=== PATIENT | female | born 1970 | race Caucasian/White ===

== ENCOUNTER 2019-12-12 16:43 | Emergency (ER) | payer BC, SELFPAY ==
[2019-12-12 16:55] VITALS: BP 132/100; PULSE 89; RESP 18; TEMP 36.7; O2SAT 100
--- NOTE | 2019-12-12 17:00 | ED.URI ---
HPI - URI/Sore Throat General Chief Complaint: Upper Respiratory Infection Stated Complaint: fever/sore throat Time Seen by Provider: 12/12/19 17:00 Source: patient Mode of arrival: ambulatory Limitations: no limitations History of Present Illness HPI Narrative: Khurram Staples is a 49 yo female with a PMH of HTN who comes to express care with upper respiratory symptoms including sore throat, ear pain, congestion; has not taken temperature so is unsure fever. Symptoms started on Sunday. She was with niece on Sunday who was diagnosed with strep on Sunday Related Data Home Medications Medication Instructions Recorded Confirmed levothyroxine 1 mcg/kg DAILY 12/12/19 12/12/19 losartan 50 mg PO DAILY 12/12/19 12/12/19 Allergies Allergy/AdvReac Type Severity Reaction Status Date / Time cefuroxime Allergy Unknown Verified 07/17/18 15:14 sulfamethizole Allergy Unknown Verified 07/17/18 15:13 trimethoprim Allergy Unknown Verified 07/17/18 15:13 sulfamethoxazole Allergy Verified 10/31/11 18:07 CEFUROXIME AXETIL Allergy Uncoded 10/31/11 18:07 Review of Systems Review of Systems: Narrative: CONSTITUTIONAL: Denies fever, chills, sweats. EYES: Denies visual changes, redness, discharge. ENT: Denies rhinorrhea, has congestion, sore throat, bilateral otalgia. CARDIOVASCULAR: Denies chest pain, palpitations, edema. RESPIRATORY: Denies dyspnea, wheezing, cough GASTROINTESTINAL: Denies abdominal pain, nausea, vomiting, diarrhea. GENITOURINARY: Denies dysuria, hematuria, abnormal discharge SKIN: Denies rash or itching. MUSCULOSKELETAL: Denies acute back pain, joint pain, or myalgia. NEUROLOGIC: Denies numbness, or focal weakness. PSYCHIATRIC: Denies anxiety or depression. [facility] Family History Family History Other Breast cancer Diabetes mellitus Heart disease Hypertension Social History Social History (Updated 12/12/19 @ 17:14 by Norma Murray CNP) Smoking status: Former smoker Second hand tobacco smoke exposure: No Alcohol intake: never Gender identity (if verbalized by the patient): Female Comments At time of signature, I agree with nursing past medical, surgical, social and family history. There is no relevant family history pertinent to the presenting complaint. Exam Narrative: Exam Narrative: GENERAL: This is a well-nourished, well-developed patient, in mild distress. HEAD: normocephalic, atraumatic. EYES: Sclera clear/white. Vision is grossly intact. EARS: External ears normal, auditory canals clear on the left , reddened on right without drainage, TMs normal without perforation. Hearing grossly intact. NOSE: External nose normal with no obvious nasal discharge, nares with redness, no rhinorrhea. THROAT: Mucous membranes moist, posterior pharynx erythema. NECK: Neck supple, tender with lymphadenopathy, no masses or thyromegaly. CARDIOVASCULAR: Regular rate and rhythm without murmurs, gallops, or rubs. RESPIRATORY: Clear to auscultation. Breath sounds equal bilaterally. No wheezes, rales, or rhonchi. GASTROINTESTINAL: Abdomen soft, non-tender, SKIN: warm, intact with no suspicious lesions or rash, good texture and turgor. NEURO: awake, alert, and oriented to person, place and time. There were no obvious focal neurologic abnormalities. Steady gait EXTREMITIES: Normal range of motion. No edema. BACK: Nontender without deformity or crepitance.. Course Course Emergency Course: Strep negative, flu negative Started on prednisone Mucinex and codeine cough syrup, Claritin Vital Signs Vital signs: Vital Signs Temperature 98.1 F 12/12/19 16:55 Pulse Rate 89 12/12/19 16:55 Respiratory Rate 18 12/12/19 16:55 Blood Pressure 132/100 H 12/12/19 16:55 Pulse Oximetry 100 12/12/19 16:55 Temperature 98.1 F 12/12/19 16:55 Pulse Rate 89 12/12/19 16:55 Respiratory Rate 18 12/12/19 16:55 Blood Pressure 132/100 H 01
--- NOTE | 2019-12-12 17:31 | ED.URI ---
HPI - URI/Sore Throat General Chief Complaint: Upper Respiratory Infection Stated Complaint: fever/sore throat Time Seen by Provider: 12/12/19 17:00 Source: patient Mode of arrival: ambulatory Limitations: no limitations History of Present Illness HPI Narrative: Elsa Staples is a 49-year-old female with a PMH of hypertension, comes to urgent care with complaints of upper respiratory symptoms including sore throat worsening over the last 2 days History of sinus surgery and recurrent sinus problems, infections Related Data Home Medications Medication Instructions Recorded Confirmed levothyroxine 1 mcg/kg DAILY 12/12/19 12/12/19 losartan 50 mg PO DAILY 12/12/19 12/12/19 Allergies Allergy/AdvReac Type Severity Reaction Status Date / Time cefuroxime Allergy Unknown Verified 07/17/18 15:14 sulfamethizole Allergy Unknown Verified 07/17/18 15:13 trimethoprim Allergy Unknown Verified 07/17/18 15:13 sulfamethoxazole Allergy Verified 10/31/11 18:07 CEFUROXIME AXETIL Allergy Uncoded 10/31/11 18:07 Review of Systems Review of Systems: Narrative: CONSTITUTIONAL: Denies fever, chills, sweats. EYES: Denies visual changes, redness, discharge. ENT: Has rhinorrhea, congestion, sore throat, no otalgia. CARDIOVASCULAR: Denies chest pain, palpitations, edema. RESPIRATORY: Denies dyspnea, wheezing, has cough GASTROINTESTINAL: Denies abdominal pain, nausea, vomiting, diarrhea. GENITOURINARY: Denies dysuria, hematuria, abnormal discharge SKIN: Denies rash or itching. MUSCULOSKELETAL: Denies acute back pain, joint pain, or myalgia. NEUROLOGIC: Denies numbness, or focal weakness. PSYCHIATRIC: Denies anxiety or depression. [facility] Family History Family History Other Breast cancer Diabetes mellitus Heart disease Hypertension Social History Social History (Updated 12/12/19 @ 17:14 by Norma Murray CNP) Smoking status: Former smoker Second hand tobacco smoke exposure: No Alcohol intake: never Gender identity (if verbalized by the patient): Female Exam Narrative: Exam Narrative: GENERAL: This is a well-nourished, well-developed patient, in mild distress. HEAD: normocephalic, atraumatic. EYES: Sclera clear/white. Vision is grossly intact. EARS: External ears normal, auditory canals clear and without drainage, TMs red without perforation. Hearing grossly intact. NOSE: External nose normal with nasal discharge, nares with redness, rhinorrhea. THROAT: Mucous membranes moist, posterior pharynx erythema and edema but no exudate. NECK: Neck supple, non-tender without lymphadenopathy, . CARDIOVASCULAR: Regular rate and rhythm without murmurs, gallops, or rubs. RESPIRATORY: Clear to auscultation. Breath sounds equal bilaterally. No wheezes, rales, or rhonchi. Dry cough GASTROINTESTINAL: Abdomen soft, non-tender, SKIN: warm, intact with no suspicious lesions or rash, good texture and turgor. NEURO: awake, alert, and oriented to person, place and time. There were no obvious focal neurologic abnormalities. Steady gait EXTREMITIES: Normal range of motion. No edema. . BACK: Nontender without deformity . Course Course Emergency Course: No flu or strep testing Patient's blood pressure is elevated because here in clinic-on blood pressure medication Patient concerned about increasing congestion in the nose with prior sinus infections and surgery Vital Signs Vital signs: Vital Signs Temperature 98.1 F 12/12/19 16:55 Pulse Rate 89 12/12/19 16:55 Respiratory Rate 18 12/12/19 16:55 Blood Pressure 132/100 H 12/12/19 16:55 Pulse Oximetry 100 12/12/19 16:55 Temperature 98.1 F 12/12/19 16:55 Pulse Rate 89 12/12/19 16:55 Respiratory Rate 18 12/12/19 16:55 Blood Pressure 132/100 H 12/12/19 16:55 Pulse Oximetry 100 12/12/19 16:55 MDM - URI/Sore Throat Differential Diagnosis Differential diagnosis: Likely upper respiratory infec
== END 2019-12-12 17:32 | disposition home or self-care (01) ==
PROVIDERS: Emergency Provider Nurse Practitioner; PCP Family Medicine
DX: J02.9 Acute pharyngitis, unspecified (principal); H66.001 Acute suppurative otitis media without spontaneous rupture of ear drum, right ear; Z87.891 Personal history of nicotine dependence; I10 Essential (primary) hypertension; E78.00 Pure hypercholesterolemia, unspecified; E03.9 Hypothyroidism, unspecified
CPT/HCPCS: 87081; 87804; 87880; 99213; G0463

== ENCOUNTER 2022-05-16 18:04 | Emergency (ER) | payer BC, SELFPAY ==
[2022-05-16 18:12] VITALS: BP 130/92; PULSE 84; RESP 18; TEMP 36.7; O2SAT 100
--- NOTE | 2022-05-16 18:40 | ED.GENADULT ---
HPI - General Adult General Chief complaint: Upper Respiratory Infection Stated complaint: Body Aches,Fatigue,Rt Ear Irritation Source: patient Mode of arrival: ambulatory Limitations: no limitations History of Present Illness HPI narrative: Patient presents for evaluation of sick symptoms. Symptoms include sinus congestion, headache, sore throat, body aches and chills. No fever, cough, shortness of breath, nausea, vomiting, diarrhea. 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 She has had COVID twice in the past. She has received COVID vaccination. She took a rapid COVID test at home which was negative. She has tried flonase, allergy medication and ibuprofen for her symptoms. Ibuprofen seems to help. She does smoke a few cigarettes per day. No additional complaints or concerns. Related Data Home Medications Medication Instructions Recorded Confirmed fluticasone propionate 50 1 spray intranasal DAILY 02/08/22 05/16/22 mcg/actuation nasal spray,suspension (Flonase Allergy Relief) cetirizine 10 mg tablet (Zyrtec) 10 mg PO DAILY 05/16/22 05/16/22 levonorgestrel 20 mcg/24 hours (7 1 device intrauterine ONCE 05/16/22 05/16/22 yrs) 52 mg intrauterine device (Mirena) Allergies Allergy/AdvReac Type Severity Reaction Status Date / Time cefuroxime Allergy Unknown Unknown Verified 05/16/22 18:26 sulfamethizole Allergy Unknown Swelling Verified 05/16/22 18:26 trimethoprim Allergy Unknown Unknown Verified 05/16/22 18:26 sulfamethoxazole Allergy Unknown Verified 05/16/22 18:26 CEFUROXIME AXETIL Allergy Mild Hives Uncoded 05/16/22 18:26 Review of Systems Review of Systems: CONSTITUTIONAL: Reports chills. Denies fever, or sweats. EYES: Denies visual changes, redness, or discharge. ENT: Reports sinus congestion and sore throat CARDIOVASCULAR: Denies chest pain, palpitations, or edema. RESPIRATORY: Denies cough or dyspnea. GASTROINTESTINAL: Denies abdominal pain, nausea, vomiting, or diarrhea. GENITOURINARY: Denies dysuria or hematuria. SKIN: Denies rash or itching. MUSCULOSKELETAL:Reports body aches NEUROLOGIC: Denies headache, numbness, dizziness, or weakness. PSYCHIATRIC: Denies anxiety or depression. [facility] Past Medical History Medical History Depression Diabetes mellitus HTN (hypertension) Hyperlipidemia Hypothyroid Pharyngitis Surgical History Surgical History H/O exploratory laparotomy H/O sinus surgery History of hip surgery Family History Family History Other Breast cancer Diabetes mellitus Heart disease Hypertension Social History Social History Smoking packs per day: 0.5 Smoking cigarettes per day: 10.0 Years smoked: 10 Smoking pack-years: 5.00 Tobacco type: cigarettes Second hand tobacco smoke exposure: Yes Alcohol intake: current Alcohol use details: rare Substance use: never Substance use type: does not use Gender identity (if verbalized by the patient): Female Exam Narrative: GENERAL: Well-appearing, well-nourished, and in no acute distress. HEAD: Normocephalic, atraumatic. EYES: PERRLA and EOMI. ENT: Nares clear, no rhinorrhea or epistaxis. Mucous membranes moist. Oropharynx without tonsillar hypertrophy exudate or other lesions. Bilateral TMs pearly mortensen nonbulging NECK: Supple. No adenopathy or masses. No carotid bruits or JVD CHEST: Clear to auscultation. No respiratory distress. No wheezes rales or rhonchi HEART: Regular rate and rhythm. No murmur heard. Normal peripheral pulses. ABDOMEN: Soft, nontender, nondistended, normal active bowel sounds. EXTREMITIES: Normal range of motion. No edema. SKIN: Warm, dry, no rash. NEURO: No focal deficits. Alert and oriented x3. PSYCH
[2022-05-16 20:36] LABS: SARS-CoV-2 RNA PCR Negative
== END 2022-05-16 18:54 | disposition home or self-care (01) ==
PROVIDERS: Emergency Provider Nurse Practitioner; PCP Family Medicine
DX: B34.9 Viral infection, unspecified (principal); Z20.822 Contact with and (suspected) exposure to COVID-19; F17.210 Nicotine dependence, cigarettes, uncomplicated; E11.9 Type 2 diabetes mellitus without complications; I10 Essential (primary) hypertension; E78.5 Hyperlipidemia, unspecified; E03.9 Hypothyroidism, unspecified
CPT/HCPCS: 87081; 87804; 87880; 99213; C9803; G0463; U0003; U0005

== ENCOUNTER 2022-07-02 11:48 | Emergency (ER) | payer BC, SELFPAY ==
--- NOTE | ~2022-07-02 | XR_ITS ---
EXAMINATION: XR ankle RT min 3V DATE: 07/02/2022 12:22 INDICATION: Right ankle injury and pain and swelling. TECHNIQUE: 4 views of right ankle were obtained. COMPARISON: None. FINDINGS: Bone alignment is normal. There is a nondisplaced avulsion fracture of distal tip of fibula . Joint spaces are normal. There is an enthesophyte at plantar aspect of calcaneal tuberosity. Ankle soft tissue swelling is noted. IMPRESSION: 1. Nondisplaced avulsion fracture of distal tip of fibula. Reviewed, dictated and finalized at location A.
[2022-07-02 12:02] VITALS: BP 140/91; PULSE 85; RESP 18; TEMP 36.7; O2SAT 100
--- NOTE | 2022-07-02 12:16 | ED.LOWEXIN ---
HPI - Extremity Injury (Lower) General Chief Complaint: Extremity Injury, Lower Stated Complaint: ankle injury Time Seen by Provider: 07/02/22 12:10 Source: patient Mode of arrival: ambulatory Limitations: no limitations History of Present Illness HPI Narrative: 51-year-old female presented for complaint of right lateral ankle pain and swelling after injury yesterday. She states she stepped off of a bucket, onto uneven ground ivan, and inverted the right foot, stating she heard a pop and felt a snap. She has taken ibuprofen, rested, iced and elevated the right leg. She states this morning the pain was quite severe. She denies numbness, tingling, weakness of the foot or toes. Related Data Home Medications Medication Instructions Recorded Confirmed fluticasone propionate 50 1 spray intranasal DAILY 02/08/22 05/16/22 mcg/actuation nasal spray,suspension (Flonase Allergy Relief) cetirizine 10 mg tablet (Zyrtec) 10 mg PO DAILY 05/16/22 05/16/22 levonorgestrel 20 mcg/24 hours (7 1 device intrauterine ONCE 05/16/22 05/16/22 yrs) 52 mg intrauterine device (Mirena) Allergies Allergy/AdvReac Type Severity Reaction Status Date / Time cefuroxime Allergy Unknown Unknown Verified 07/02/22 12:17 sulfamethizole Allergy Unknown Swelling Verified 07/02/22 12:17 trimethoprim Allergy Unknown Unknown Verified 07/02/22 12:17 sulfamethoxazole Allergy Unknown Verified 07/02/22 12:17 CEFUROXIME AXETIL Allergy Mild Hives Uncoded 07/02/22 12:17 Review of Systems Review of Systems: CONSTITUTIONAL: Denies body aches, fever, chills CARDIOVASCULAR: Denies chest pain, palpitations, or edema. RESPIRATORY: Denies cough or dyspnea. SKIN: Denies rash, itching, or wounds. MUSCULOSKELETAL: Reports right ankle pain NEUROLOGIC: Denies headache, numbness, tingling, or weakness. All systems reviewed & are unremarkable except as noted in HPI and below PMFSH Past Medical History Medical History Depression Diabetes mellitus HTN (hypertension) Hyperlipidemia Hypothyroid Pharyngitis Surgical History Surgical History H/O exploratory laparotomy H/O sinus surgery History of hip surgery Family History Family History Other Breast cancer Diabetes mellitus Heart disease Hypertension Social History Social History Smoking packs per day: 0.5 Smoking cigarettes per day: 10.0 Years smoked: 10 Smoking pack-years: 5.00 Tobacco type: cigarettes Second hand tobacco smoke exposure: Yes Alcohol intake: current Alcohol use details: rare Substance use: never Substance use type: does not use Gender identity (if verbalized by the patient): Female Comments At time of signature, I have reviewed and agree with nursing past medical, surgical, social and family history unless otherwise noted. Please see nursing chart for further information. There is no relevant family history pertinent to the presenting complaint Exam Narrative: GENERAL: Well-appearing CHEST: Speaks in full sentences. No respiratory distress. HEART: Regular rate and rhythm. Normal and equal peripheral pulses. EXTREMITIES: Right lateral ankle with moderate swelling and ecchymosis surrounding malleolus; TTP laterally; foot has normal strength and sensation, limited range of motion at ankle due to pain with movement. No open wounds, pulse palpable and equal bilaterally, skin warm, dry, pink. Capillary refill less than 3 seconds. SKIN: Warm, dry, no rash. NEURO: Alert and oriented x3. Course Course Emergency Course: Patient is aware of diagnosis, understands and agrees to treatment plan. Anticipatory guidance given. Patient agrees to follow-up as directed and is aware of reasons to seek care at the emergency department
== END 2022-07-02 12:50 | disposition home or self-care (01) ==
PROVIDERS: Emergency Provider Nurse Practitioner Family; PCP Family Medicine
DX: S82.831A Other fracture of upper and lower end of right fibula, initial encounter for closed fracture (principal); X50.9XXA Other and unspecified overexertion or strenuous movements or postures, initial encounter; E11.9 Type 2 diabetes mellitus without complications; I10 Essential (primary) hypertension; E78.5 Hyperlipidemia, unspecified; E03.9 Hypothyroidism, unspecified; F17.210 Nicotine dependence, cigarettes, uncomplicated; F32.A Depression, unspecified
CPT/HCPCS: 73610; 99214; G0463

== ENCOUNTER 2022-10-31 08:04 | Outpatient (RCR) | payer BC, SELFPAY ==
[2022-10-31 08:18] VITALS: BMI 25.5
[2022-10-31 09:02] VITALS: BMI 25.5
== END 2023-01-16 08:56 | disposition home or self-care (01) ==
LOC: ANHDMC 08:04
PROVIDERS: PCP Family Medicine; Visit Provider Physician Assistant
DX: E11.65 Type 2 diabetes mellitus with hyperglycemia (principal); Z71.3 Dietary counseling and surveillance
CPT/HCPCS: 97802

== ENCOUNTER 2023-11-23 00:16 | Day surgery (SDC) | payer BC, SELFPAY ==
[2023-10-29 14:53] VITALS: BMI 21.9
--- NOTE | 2023-11-21 11:18 | SUR.PREOP ---
Patient called regarding upcoming procedure. Reviewed preop instructions, appointment times, and procedure prep.
[2023-11-23 07:55] VITALS: BP 126/79; PULSE 107; RESP 16; TEMP 36.2; O2SAT 100
[2023-11-23] MEDS: LACTATED RINGERS 1,000 ML 150 ML IV CONT (08:04)
[2023-11-23 08:07] LABS: Glucose Point of Care 142 mg/dl (65-105)
--- NOTE | 2023-11-23 08:57 | PM.HPGS ---
History of Present Illness History of Present Illness Consent: Risks, benefits, and alternatives have been discussed and questions answered. Patient agrees to proceed with procedure. Chief complaint: Other Fecal Abnormalities Narrative: Khurram Staples is a 53 year old female here for first colonoscopy, had + cologuard Review of Systems Constitutional: Constitutional: Denies headache(s) and Denies weakness Eyes: Eyes: Denies blurry vision ENT: Reports Normal hearing present, Denies headache(s) and Denies neck pain Cardiovascular: Cardiovascular: Denies chest pain and Denies dyspnea Respiratory: Respiratory: Denies dyspnea Gastrointestinal: Gastrointestinal: Reports no additional gastrointestinal complaints Genitourinary: Genitourinary: Denies dysuria Musculoskeletal: Musculoskeletal: Denies neck pain Integumentary/Breasts: Skin/Breast: Denies dry skin Neurologic: Reports Normal hearing present, Denies headache(s) and Denies weakness Psychiatric: Psychiatric: Denies anxiety Endocrine: Endocrine: Denies change in body appearance Hematologic/Lymphatic: Hematologic/Lymphatic: Denies easy bleeding Allergic/Immunologic: Allergic/Immunologic: Denies urticaria PMFSH Past Medical History Medical History (Updated 11/23/23 @ 08:58 by Ace Ordoñez MD) Depression Diabetes mellitus HTN (hypertension) Hyperlipidemia Hypothyroid Pharyngitis Positive colorectal cancer screening using Cologuard test Surgical History Surgical History H/O exploratory laparotomy H/O sinus surgery History of hip surgery Family History Family History Other Breast cancer Diabetes mellitus Heart disease Hypertension Social History Social History (Updated 06/29/23 @ 08:41 by Rianna Espino MA) Years smoked: 15 Smoking status: Current every day smoker Tobacco type: cigarettes Second hand tobacco smoke exposure: Yes Alcohol intake: current Alcohol use details: rare Substance use: current Substance use type: marijuana Other substance usage details: Occasional Gummies Lack of Transportation: No Lack of Food: Never True Current Housing: I Have Housing Concerned About Future Housing: No Difficulty Paying Gas/Electric Bills: No Difficulty Paying for Meds: No Currently Unemployed: No Education: Bachelor's Degree Difficulty w/ Childcare or Family Care: No Living arrangements: with family Occupation/Education: occupation Gender identity (if verbalized by the patient): Female Spiritual care concerns: No Agree to blood products: Yes Meds Home Medications and Allergies Home Medications Medication Instructions Recorded Confirmed Type fluticasone propionate 50 1 spray intranasal DAILY 02/08/22 11/23/23 History mcg/actuation nasal spray,suspension (Flonase Allergy Relief) cetirizine 10 mg tablet (Zyrtec) 10 mg PO DAILY 05/16/22 11/23/23 History levonorgestrel 21 mcg/24 hours (8 1 device intrauterine ONCE 05/16/22 11/23/23 History yrs) 52 mg intrauterine device (Mirena) blood-glucose meter (Accu-Chek #1 ea 10/09/22 11/23/23 Rx Guide Glucose Meter) lancets (Accu-Chek Softclix #100 ea 10/09/22 11/23/23 Rx Lancets) levothyroxine 50 mcg tablet See Rx Instructions .Route 08/04/23 11/23/23 Rx .COMPLEX #90 tabs losartan 50 mg tablet 50 mg PO DAILY #90 tabs 08/15/23 11/23/23 Rx blood sugar diagnostic (Accu-Chek #100 ea 10/02/23 11/23/23 Rx Guide test strips) semaglutide 0.25 mg or 0.5 mg (2 See Rx Instructions .Route 10/18/23 11/23/23 Rx mg/3 mL) subcutaneous pen injector .COMPLEX #3 mL (Ozempic) bupropion HCl 300 mg 24 hr tablet, 300 mg PO QAM #90 tabs 10/21/23 11/23/23 Rx extended release (Wellbutrin XL) atorvastatin 10 mg tablet See Rx Instructions .Route 11/07/23 11/23/23 Rx .COMPLEX #90 tabs
--- NOTE | 2023-11-23 09:25 | SUR.OPER ---
constantin submucosal injectable lot [id number], exp 04/12/25, 7 cc
--- NOTE | 2023-11-23 09:27 | SUR.OPER ---
endoscopic marker lot [id number], expiration 12/14/24
--- NOTE | 2023-11-23 09:48 | SUR.OPER ---
four resolution clips, 235 cm 2.8 mm ref [id number], lot [id number], expiration 07/05/2026 (all four clips)
[2023-11-23 09:57] VITALS: BP 122/70; PULSE 98; RESP 24; O2SAT 99
[2023-11-23 10:07] VITALS: BP 122/79; PULSE 76; RESP 21; O2SAT 100
[2023-11-23 10:17] VITALS: BP 132/90; PULSE 75; RESP 15; O2SAT 100
== END 2023-11-23 10:28 | disposition home or self-care (01) ==
PROVIDERS: PCP Family Medicine; Visit Provider Internal Medicine Gastroenterology
PROC: 0DJD8ZZ Inspection of Lower Intestinal Tract, Via Natural or Artificial Opening Endoscopic (ICD-10-PCS; CPT 45378; principal; 2023-11-23 09:00)
DX: D12.4 Benign neoplasm of descending colon (principal); D12.5 Benign neoplasm of sigmoid colon; K57.30 Diverticulosis of large intestine without perforation or abscess without bleeding; K64.8 Other hemorrhoids; I10 Essential (primary) hypertension; E78.5 Hyperlipidemia, unspecified; E03.9 Hypothyroidism, unspecified; E11.9 Type 2 diabetes mellitus without complications; F32.A Depression, unspecified; F17.210 Nicotine dependence, cigarettes, uncomplicated; Z79.85 Long-term (current) use of injectable non-insulin antidiabetic drugs
CPT/HCPCS: 45385; 45381; 82948; 88305; J2704; J7120

== ENCOUNTER 2024-05-31 12:08 | Emergency (ER) | payer BC, SELFPAY ==
--- NOTE | 2024-05-31 12:13 | ED.SKABFB ---
HPI - Skin/Abscess/Foreign Bdy General Chief complaint: Wound/Laceration Stated complaint: finger laceration Time Seen by Provider: 05/31/24 12:13 Source: patient Mode of arrival: ambulatory Limitations: no limitations History of Present Illness HPI narrative: Elsa is a 53-year-old female patient presenting to the clinic today with complaints of a finger laceration to the right 4th distal finger. She reports she was cleaning an of an oven at-home prior to arrival and cut the finger on a screw. Tetanus is unknown. Related Data Home Medications Medication Instructions Recorded Confirmed fluticasone propionate 50 1 spray intranasal DAILY 02/08/22 05/31/24 mcg/actuation nasal spray,suspension (Flonase Allergy Relief) cetirizine 10 mg tablet (Zyrtec) 10 mg PO DAILY 05/16/22 05/31/24 levonorgestrel 21 mcg/24 hr (up to 1 device intrauterine ONCE 05/16/22 05/31/24 8 years) 52 mg intrauterine device (Mirena) Allergies Allergy/AdvReac Type Severity Reaction Status Date / Time cefuroxime Allergy Unknown Hives Verified 05/31/24 12:34 sulfamethizole Allergy Unknown Swelling Verified 05/31/24 12:34 trimethoprim Allergy Unknown Unknown Verified 05/31/24 12:34 nut - unspecified Allergy Other Verified 05/31/24 12:34 sulfamethoxazole Allergy Unknown Verified 05/31/24 12:34 Review of Systems Review of Systems: Pertinent positives per HPI. Patient denies any fever, chills, rash, headache, visual changes, dizziness, cough, runny nose, sore throat, shortness of breath, chest pain, palpitations, nausea, vomiting, diarrhea, constipation, abdominal pain, or any urinary issues. [facility] Past Medical History Medical History Depression Diabetes mellitus HTN (hypertension) Hyperlipidemia Hypothyroid Pharyngitis Positive colorectal cancer screening using Cologuard test Surgical History Surgical History H/O exploratory laparotomy H/O sinus surgery History of hip surgery Family History Family History Other Breast cancer Diabetes mellitus Heart disease Hypertension Social History Social History Smoking packs per day: 0.15 Smoking cigarettes per day: 3.0 Years smoked: 15 Smoking pack-years: 2.25 Smoking status: Current every day smoker Tobacco type: cigarettes (cut back a lot ) Second hand tobacco smoke exposure: Yes Alcohol intake: current Alcohol use details: rare Substance use: current Substance use type: marijuana Other substance usage details: Occasional Gummies Lack of Transportation: No Lack of Food: Never True Current Housing: I Have Housing Concerned About Future Housing: No Difficulty Paying Gas/Electric Bills: No Difficulty Paying for Meds: No Currently Unemployed: No Education: Bachelor's Degree Difficulty w/ Childcare or Family Care: No Living arrangements: with family Occupation/Education: occupation Gender identity (if verbalized by the patient): Female Spiritual care concerns: No Agree to blood products: Yes Comments At the time of my signature, I reviewed and agree with the nursing past medical, surgical, social, and family history. There is no relevant family history pertinent to the patient complaint. Exam Narrative: General: Well-developed, well nourished, in no apparent distress Head: Normocephalic, atraumatic. Cardio: Regular rate and rhythm, s1 and s2 normal, no murmur appreciated. Resp: Clear to auscultation bilaterally, no rhonchi, rales, wheezing or rubs. Integumentary: [place], warm, and dry, 1 x 1 cm flap laceration to the distal 4th right finger. Bleeding is controlled Course Course Emergency Course: Portions of this record may have been created with voice recognition [employer]
[2024-05-31 12:24] VITALS: BP 139/81; PULSE 78; RESP 18; TEMP 36.8; O2SAT 99
[2024-05-31] MEDS: TETANUS,DIPHTHERIA,AC PERTUSSIS ADULT (0.5 ML) BOOSTRIX IM (12:36)
[2024-05-31] MEDS: LIDOCAINE HCL 1% LOCAL INJ 2 ML AMPUL 4 ML INFILTRATE (13:00)
== END 2024-05-31 13:08 | disposition home or self-care (01) ==
PROVIDERS: Emergency Provider Nurse Practitioner Family; PCP Family Medicine
DX: S61.214A Laceration without foreign body of right ring finger without damage to nail, initial encounter (principal); W45.8XXA Other foreign body or object entering through skin, initial encounter; Z23 Encounter for immunization; F17.210 Nicotine dependence, cigarettes, uncomplicated; F12.90 Cannabis use, unspecified, uncomplicated; E11.9 Type 2 diabetes mellitus without complications; I10 Essential (primary) hypertension; E78.5 Hyperlipidemia, unspecified; E03.9 Hypothyroidism, unspecified
CPT/HCPCS: 12001; 90471; 90715; 99212; G0463

== ENCOUNTER 2024-06-20 00:44 | Day surgery (SDC) | payer BC, SELFPAY ==
[2024-06-02 12:52] VITALS: BMI 21.5
[2024-06-20 08:10] VITALS: BP 121/81; PULSE 91; RESP 16; TEMP 36.2; O2SAT 99
[2024-06-20] MEDS: LACTATED RINGERS 1,000 ML 150 ML IV CONT (08:19)
[2024-06-20 08:21] LABS: Glucose Point of Care 102 mg/dl (65-105)
--- NOTE | 2024-06-20 08:31 | WPDANESEPPF ---
Anes - Initial Pre Proc Eval Procedure: Operation Date: 06/20/24 09:30 Proposed Procedures p Colonoscopy - Ace Ordoñez MD Date/Time: 06/20/24 08:31 Surgeon: Ace Ordoñez MD Pre Op Diagnosis: Personal hx. of colon polyps Patient Data Age: 53 Gender: F Height: 1.63 m Weight: 55.5 kg Last Vital Signs Temp 97.2 F L 06/20/24 08:10 Pulse 91 06/20/24 08:10 Resp 16 06/20/24 08:10 BP 121/81 06/20/24 08:10 Pulse Ox 99 06/20/24 08:10 O2 Del Method Room Air 06/20/24 08:10 Allergies Allergy/AdvReac Type Severity Reaction Status Date / Time cefuroxime Allergy Unknown Hives Verified 06/20/24 08:08 sulfamethizole Allergy Unknown Swelling Verified 06/20/24 08:08 trimethoprim Allergy Unknown Unknown Verified 06/20/24 08:08 nut - unspecified Allergy Other Verified 06/20/24 08:08 sulfamethoxazole Allergy Unknown Verified 06/20/24 08:08 Home Medications Medication Instructions Recorded Confirmed Type fluticasone propionate 50 1 spray intranasal DAILY 02/08/22 06/02/24 History mcg/actuation nasal spray,suspension (Flonase Allergy Relief) cetirizine 10 mg tablet (Zyrtec) 10 mg PO DAILY 05/16/22 06/02/24 History levonorgestrel 21 mcg/24 hr (up to 1 device intrauterine ONCE 05/16/22 06/02/24 History 8 years) 52 mg intrauterine device (Mirena) blood-glucose meter (Accu-Chek #1 ea 10/09/22 01/25/24 Rx Guide Glucose Meter) lancets (Accu-Chek Softclix #100 ea 10/09/22 01/25/24 Rx Lancets) blood sugar diagnostic (Accu-Chek #100 ea 10/02/23 01/25/24 Rx Guide test strips) bupropion HCl 300 mg 24 hr tablet, 300 mg PO QAM #90 tabs 01/31/24 06/02/24 Rx extended release (Wellbutrin XL) losartan 50 mg tablet 50 mg PO DAILY #90 tabs 01/31/24 06/02/24 Rx atorvastatin 10 mg tablet See Rx Instructions .Route 05/06/24 06/02/24 Rx .COMPLEX #90 tabs levothyroxine 50 mcg tablet See Rx Instructions .Route 05/06/24 06/02/24 Rx .COMPLEX #90 tabs semaglutide 0.25 mg or 0.5 mg (2 See Rx Instructions .Route 06/02/24 06/20/24 Rx mg/3 mL) subcutaneous pen injector .COMPLEX #3 mL (Ozempic) Laboratory Tests 06/20/24 08:17 POC Capillary Glucose 102 mg/dl (65-105) Patient hx anesthesia problems: none Family hx anesthesia problems: none Results Review: All pre-operative results and documents have been reviewed as part of the pre-operative evaluation. [facility] Past Medical History Medical History Depression Diabetes mellitus HTN (hypertension) Hyperlipidemia Hypothyroid Pharyngitis Positive colorectal cancer screening using Cologuard test Surgical History Surgical History H/O exploratory laparotomy H/O sinus surgery History of hip surgery Family History Family History Other Breast cancer Diabetes mellitus Heart disease Hypertension Social History Social History Smoking packs per day: 0.15 Smoking cigarettes per day: 3.0 Years smoked: 15 Smoking pack-years: 2.25 Smoking status: Current every day smoker Tobacco type: cigarettes Second hand tobacco smoke exposure: Yes Alcohol intake: current Drinks per week: 4 Alcohol use details: rare Substance use: current Substance use type: does not use Other substance usage details: Occasional Gummies Lack of Transportation: No Lack of Food: Never True Current Housing: I Have Housing Concerned About Future Housing: No Difficulty Paying Gas/Electric Bills: No Difficulty Paying for Meds: No Currently Unemployed: No Education: Bachelor's Degree Difficulty w/ Childcare or Family Care: No Living arrangements: with family Occupation/Education: occupation Gender identity (if verbalized by the patient)
--- NOTE | 2024-06-20 08:40 | PM.HPGS ---
History of Present Illness History of Present Illness Consent: Risks, benefits, and alternatives have been discussed and questions answered. Patient agrees to proceed with procedure. Chief complaint: Personal hx. of colon polyps Narrative: Khurram Staples is a 53 year old female with large polyp removed about 6 months ago Review of Systems Review of Systems: All systems reviewed & are unremarkable except as noted in HPI and below PMFSH Past Medical History Medical History (Updated 06/20/24 @ 08:41 by Ace Ordoñez MD) Adenomatous colon polyp Depression Diabetes mellitus HTN (hypertension) Hyperlipidemia Hypothyroid Pharyngitis Positive colorectal cancer screening using Cologuard test Surgical History Surgical History H/O exploratory laparotomy H/O sinus surgery History of hip surgery Family History Family History Other Breast cancer Diabetes mellitus Heart disease Hypertension Social History Social History Smoking packs per day: 0.15 Smoking cigarettes per day: 3.0 Years smoked: 15 Smoking pack-years: 2.25 Smoking status: Current every day smoker Tobacco type: cigarettes Second hand tobacco smoke exposure: Yes Alcohol intake: current Drinks per week: 4 Alcohol use details: rare Substance use: current Substance use type: does not use Other substance usage details: Occasional Gummies Lack of Transportation: No Lack of Food: Never True Current Housing: I Have Housing Concerned About Future Housing: No Difficulty Paying Gas/Electric Bills: No Difficulty Paying for Meds: No Currently Unemployed: No Education: Bachelor's Degree Difficulty w/ Childcare or Family Care: No Living arrangements: with family Occupation/Education: occupation Gender identity (if verbalized by the patient): Female Spiritual care concerns: No Agree to blood products: Yes Meds Home Medications and Allergies Home Medications Medication Instructions Recorded Confirmed Type fluticasone propionate 50 1 spray intranasal DAILY 02/08/22 06/02/24 History mcg/actuation nasal spray,suspension (Flonase Allergy Relief) cetirizine 10 mg tablet (Zyrtec) 10 mg PO DAILY 05/16/22 06/02/24 History levonorgestrel 21 mcg/24 hr (up to 1 device intrauterine ONCE 05/16/22 06/02/24 History 8 years) 52 mg intrauterine device (Mirena) blood-glucose meter (Accu-Chek #1 ea 10/09/22 01/25/24 Rx Guide Glucose Meter) lancets (Accu-Chek Softclix #100 ea 10/09/22 01/25/24 Rx Lancets) blood sugar diagnostic (Accu-Chek #100 ea 10/02/23 01/25/24 Rx Guide test strips) bupropion HCl 300 mg 24 hr tablet, 300 mg PO QAM #90 tabs 01/31/24 06/02/24 Rx extended release (Wellbutrin XL) losartan 50 mg tablet 50 mg PO DAILY #90 tabs 01/31/24 06/02/24 Rx atorvastatin 10 mg tablet See Rx Instructions .Route 05/06/24 06/02/24 Rx .COMPLEX #90 tabs levothyroxine 50 mcg tablet See Rx Instructions .Route 05/06/24 06/02/24 Rx .COMPLEX #90 tabs semaglutide 0.25 mg or 0.5 mg (2 See Rx Instructions .Route 06/02/24 06/20/24 Rx mg/3 mL) subcutaneous pen injector .COMPLEX #3 mL (Ozempic) Allergies Allergy/AdvReac Type Severity Reaction Status Date / Time cefuroxime Allergy Unknown Hives Verified 06/20/24 08:08 sulfamethizole Allergy Unknown Swelling Verified 06/20/24 08:08 trimethoprim Allergy Unknown Unknown Verified 06/20/24 08:08 nut - unspecified Allergy Other Verified 06/20/24 08:08 sulfamethoxazole Allergy Unknown Verified 06/20/24 08:08 Vital Signs Vital Signs - 24 hr 06/20/24 08:10 Temperature 97.2 F L Pulse Rate 91 Respiratory Rate 16 Blood Pressure 121/81 Pulse Oximetry 99 Oxygen Delivery Room Air Exam Const: General: comfortable and no acute distres
[2024-06-20 09:08] VITALS: BP 129/82; PULSE 75; RESP 16; O2SAT 100
[2024-06-20 09:18] VITALS: BP 132/83; PULSE 76; RESP 18; O2SAT 100
[2024-06-20 09:28] VITALS: BP 135/83; PULSE 70; RESP 14; O2SAT 100
== END 2024-06-20 09:38 | disposition home or self-care (01) ==
PROVIDERS: PCP Family Medicine; Visit Provider Internal Medicine Gastroenterology
PROC: 0DJD8ZZ Inspection of Lower Intestinal Tract, Via Natural or Artificial Opening Endoscopic (ICD-10-PCS; CPT 45378; principal; 2024-06-20 09:30)
DX: Z09 Encounter for follow-up examination after completed treatment for conditions other than malignant neoplasm (principal); D12.5 Benign neoplasm of sigmoid colon; D12.2 Benign neoplasm of ascending colon; D12.4 Benign neoplasm of descending colon; K57.30 Diverticulosis of large intestine without perforation or abscess without bleeding; K64.8 Other hemorrhoids; K64.4 Residual hemorrhoidal skin tags; I10 Essential (primary) hypertension; E11.9 Type 2 diabetes mellitus without complications; E78.5 Hyperlipidemia, unspecified; E03.9 Hypothyroidism, unspecified; F32.A Depression, unspecified; F17.210 Nicotine dependence, cigarettes, uncomplicated; Z79.85 Long-term (current) use of injectable non-insulin antidiabetic drugs
CPT/HCPCS: 45385; 45380; 82948; 88305; J2704; J7120